=== PATIENT | female | born 1965 | race Two or more races ===

== ENCOUNTER 2017-07-17 15:43 | Emergency (ER) | payer SELFPAY ==
[~2017-07-17] VITALS: Ht 162.6 cm; Wt 81.6 kg
[2017-07-17 16:02] VITALS: BP 109/59
[2017-07-17] MEDS ORDERED: ACETAMINOPHEN/CODEINE#3 (300/30mg) TAB PO ONE (17:00)
== END 2017-07-17 17:01 | disposition home or self-care (01) ==
LOC: ER 15:52
DX: S52.502A Unspecified fracture of the lower end of left radius, initial encounter for closed fracture (principal); W18.39XA Other fall on same level, initial encounter; Y93.89 Activity, other specified; Y92.89 Other specified places as the place of occurrence of the external cause; Y99.8 Other external cause status
CPT/HCPCS: 29125